=== PATIENT | male | born 1960 | race Caucasian/White ===

== ENCOUNTER → 2017-12-16 | Outpatient (CLI) | payer OTHER ==
[~2017-12-16] MED LIST: ALB0.5 INH; ALBUDR INH; ASPI81TA15; BUD8.6RPT NS; COLE625T15; EZE10 PO; FEN145 PO; FENO48PT PO; LEVO750T25 PO; LOR5 PO; LOR5/325 PO; MET50 PO; METXL50 PO; MON10 PO; OMEG-97 PO; PAN20 PO; PAN40 PO; RABE20TA33; SERT-173 PO; [UNRECOGNIZED DRUG - CODE] IH
--- NOTE | 2017-12-16 15:28 | RADIOLOGY IMAGING REPORT ---
FACILITY: [facility] PATIENT NAME: Curtis Chen : 1960 MR: [id number] V: [id number] EXAM DATE: ORDERING PHYSICIAN: JOB HOWELL TECHNOLOGIST: Location: [facility] [place] Patient: Curtis Chen : 1960 Visit/Account:[id number] Date of Sevice: 12/16/2017 EXAMINATION: CT of the Paranasal Sinuses HISTORY: Sinus symptoms TECHNIQUE: CT was performed through the paranasal sinuses without intravenous contrast administratio n. Coronal and sagittal reformatted images were generated. One of the following dose optimization techniques was utilized in the performance of this exam: autom ated exposure control; adjustment of the mA and/or kV according to patient size; or use of iterative reconstruction technique. Specific details can be referenced in the facility's radiology CT exam ope rational policy. COMPARISON: None. FINDINGS: Clear mastoid air cells and middle ear cavities. Unchanged right maxillary sinus 1.4 cm mucous retent ion cyst. Otherwise clear paranasal sinuses. No nasal cavity polyp. Patent infundibula. Left travis b ullosa. Mild unchanged rightward deviation of the inferior nasal septum. Normal temporomandibular gus nts. The visible extracranial and intracranial structures are normal. IMPRESSION: 1. Unchanged 1.4 cm right maxillary sinus mucous retention cyst. Otherwise clear sinuses. 2. Unchanged mild nasal septum deviation. 3. Left travis bullosa. 4. Otherwise unremarkable sinus CT. Report Dictated By: Joon Clifford MD at 12/16/2017 3:18 PM Report E-Signed By: Joon Clifford MD at 12/16/2017 3:23 PM WSN:[id number]
== END ==
LOC: CT 07:18
PROVIDERS: ATTEND Nurse Practitioner Family
DX: J34.1 Cyst and mucocele of nose and nasal sinus (principal); J34.2 Deviated nasal septum; J34.9 Unspecified disorder of nose and nasal sinuses
CPT/HCPCS: 70486